=== PATIENT | female | born 1995 | race Caucasian/White ===

== ENCOUNTER 2021-10-06 16:04 | Emergency (ER) | payer OTHER, BC ==
[~2021-10-06] VITALS: Ht 177.8 cm; Wt 77.1 kg
[2021-10-06] MEDS ORDERED: METRONIDAZOLE500 MG PO (23:12)
[2021-10-06] MEDS ORDERED: INTESTINEX680 M1 PO (23:12)
[2021-10-06] MEDS ORDERED: LEVSIN0.125 MG PO (23:12)
[2021-10-06] MEDS ORDERED: PEPCID AC20 MG PO (23:12)
== END 2021-10-06 23:51 | disposition home or self-care (01) ==
LOC: ER 16:04
DX: A09 Infectious gastroenteritis and colitis, unspecified (principal); L29.0 Pruritus ani; R10.9 Unspecified abdominal pain

== ENCOUNTER 2021-11-04 11:49 | Emergency (ER) | payer OTHER, BC ==
[~2021-11-04] VITALS: Ht 177.8 cm; Wt 77.1 kg
[~2021-11-04 11:49] MED LIST: INTESTINEX680 M1 PO; LEVSIN0.125 MG PO; METRONIDAZOLE500 MG PO; PEPCID AC20 MG PO
== END 2021-11-04 15:13 | disposition home or self-care (01) ==
LOC: ER 11:49
DX: R51.9 Headache, unspecified (principal)

== ENCOUNTER 2022-02-17 12:16 | Emergency (ER) | payer OTHER, BC ==
[~2022-02-17] VITALS: Ht 177.8 cm; Wt 77.1 kg
== END 2022-02-17 15:19 | disposition home or self-care (01) ==
LOC: ER 12:16
DX: M79.661 Pain in right lower leg (principal)

== ENCOUNTER 2022-03-12 10:08 | Emergency (ER) | payer OTHER, BC ==
[~2022-03-12] VITALS: Ht 177.8 cm; Wt 79.4 kg
== END 2022-03-12 10:57 | disposition home or self-care (01) ==
LOC: ER 10:08
DX: B35.4 Tinea corporis (principal)